=== PATIENT | female | born 1950 | race Two or more races ===

== ENCOUNTER 2018-10-25 22:38 | Inpatient (IN) | payer SELFPAY ==
[~2018-10-25] VITALS: Ht 152.4 cm; Wt 89.5 kg
[2018-10-25] MEDS ORDERED: ACETAMINOPHEN 325 MG TAB PO ONE (23:00)
[2018-10-25 23:20] LABS: Eosinophils # (auto) 0.1 uL; Monocytes # (auto) 0.2 uL
[2018-10-25 23:21] LABS: Basophils # (auto) 0 uL; Basophils % (auto) 0.3 % (0.0-2.0); Eosinophils % (auto) 0.7 % (0.0-7.0); Hematocrit 31.1 % (36.0-46.0); Lymphocytes # (auto) 0.7 uL; Lymphocytes % (auto) 5.2 % (10.0-50.0); Mean Corpuscular Hemoglobin 26.7 pg (28.0-32.0); Mean Corpuscular Hgb Conc. 32.1 g/dL (32.0-36.0); Mean Corpuscular Volume 83.3 fL (80.0-100.0); Monocytes % (auto) 1.4 % (0.0-12.0); Neutrophils # (auto) 11.7 uL; Neutrophils % (auto) 92.4 % (37.0-80.0); Nucleated Red Blood Cells % 0.1 %; Platelet Count (auto) 536 10^3/uL (140-450); Red Blood Cells 3.73 10^6/uL (4.0-5.20); Red Cell Distribution Width 15.3 % (11.8-14.3); White Blood Cell 12.7 10^3/uL (4.4-10.8)
[2018-10-25 23:39] LABS: Albumin 2.5 g/dL (3.4-5.0); Calcium 8.5 mg/dL (8.5-10.1)
[2018-10-25 23:47] LABS: BUN/Creatinine Ratio 12.6; Bilirubin, Total 0.5 mg/dL (0.2-1.0); Total Protein 7.8 g/dL (6.4-8.2)
[2018-10-26] MEDS ORDERED: VANCOMYCIN PER PHARMACY 1,000 MG IV SCH (01:15)
[2018-10-26] MEDS ORDERED: ACETAMINOPHEN 325 MG TAB PO PRN (01:15)
[2018-10-26] MEDS ORDERED: SODIUM CHLORIDE 0.9% 2,250 ML IV ONE (01:15)
[2018-10-26] MEDS ORDERED: InsuLIN REG 1unit/0.01ml Soln (100units/ml) IV ONE ×2 (01:15→04:45)
[2018-10-26] MEDS ORDERED: VANCOMYCIN 1GM/250ML 250 ML IV ONE (01:45)
[2018-10-26 02:09] LABS: INR 0.99 (0.9-1.15)
[2018-10-26 04:28] LABS: Urine Bacteria FEW /hpf (None Seen); Urine Blood TRACE /uL (Negative); Urine Specific Gravity 1.019 (1.001-1.035); Urine WBC 72 /hpf (0 - 5)
[2018-10-26 05:32] LABS: Fibrinogen 588.9 mg/dL (177-375)
[2018-10-26] MEDS: PIPERACILLIN-TAZOB 3.375GM 100 ML IV SCH ×2 (06:14→12:02)
[2018-10-26] MEDS ORDERED: DEXTROSE (50%) 50ML SYRG IV PRN (06:45)
[2018-10-26] MEDS ORDERED: HYDROcodone-ACET 5/325MG TAB PO PRN (06:45)
[2018-10-26] MEDS ORDERED: ONDANSETRON HCL 4 MG/2 ML VIAL IV PRN (06:45)
[2018-10-26] MEDS: SODIUM CHLORIDE 0.9% 1,000 ML IV SCH ×2 (07:04→23:25)
[2018-10-26 08:06] LABS: BUN/Creatinine Ratio 13.1; Calcium 7.7 mg/dL (8.5-10.1); Potassium 3.8 mmol/L (3.5-5.1)
[2018-10-26 08:09] LABS: Eosinophils # (auto) 0.1 uL; Lymphocytes # (auto) 1.7 uL; Monocytes # (auto) 0.6 uL; Neutrophils # (auto) 11.2 uL
[2018-10-26 08:12] LABS: Basophils # (auto) 0 uL; Basophils % (auto) 0.2 % (0.0-2.0); Eosinophils % (auto) 0.6 % (0.0-7.0); Hematocrit 28.2 % (36.0-46.0); Lymphocytes % (auto) 12.3 % (10.0-50.0); Mean Corpuscular Hemoglobin 26.1 pg (28.0-32.0); Mean Corpuscular Hgb Conc. 31.7 g/dL (32.0-36.0); Mean Corpuscular Volume 82.5 fL (80.0-100.0); Monocytes % (auto) 4.1 % (0.0-12.0); Neutrophils % (auto) 82.8 % (37.0-80.0); Red Blood Cells 3.42 10^6/uL (4.0-5.20); Red Cell Distribution Width 15.7 % (11.8-14.3); White Blood Cell 13.5 10^3/uL (4.4-10.8)
[2018-10-26] MEDS: ACCU-CHEK COMFORT CURVE STRIP VI SCH ×4 (08:30→20:00)
[2018-10-26] MEDS: InsuLIN REG 1unit/0.01ml Soln (100units/ml) SC SCH ×4 (08:39→21:00)
[2018-10-26] MEDS ORDERED: VANCOMYCIN 750 MG in D5W 5% 250 ML IV SCH ×2 (10:15→20:00)
[2018-10-26 10:47] LABS: Platelet Count (auto) 483 10^3/uL (140-450)
--- NOTE | 2018-10-26 11:30 | NUR ---
OPENING PATIENT UP TO THE FLOOR, DAUGHTER AT BEDSIDE, WILL F/U WITH ASSESSMENT
[2018-10-26 12:00] VITALS: BP 96/65
--- NOTE | 2018-10-26 12:47 | NUR ---
NURSE NOTE CHASE AT BEDSIDE, DISCUSSING PLAN FOR PATIENT REGARDING INSURANCE
--- NOTE | 2018-10-26 13:12 | NUR ---
MD DR PHELPS OB ROUNDING STATES PATIENT CAN F/U PER THE PROLAPSE UTERUS OUTPATIENT TO [facility] DUE TO NO INSURANCE TO HAVE SURGERY TO FIX PROLAPSE UTERUS DIFLUCAN 150 MG PO QD FOR 3 DAYS TO TREAT YEAST INFECTION SHE MAY START THE DOSE NOW.
[2018-10-26] MEDS ORDERED: FLUCONAZOLE 100 MG TAB PO ONE (13:15)
--- NOTE | 2018-10-26 14:33 | NUR ---
paging md larsen paging doctor larsen per the new blood culture results positive blood cultures for gram negative rods
--- NOTE | 2018-10-26 14:37 | NUR ---
chava requests to discontinue vancomycin and to start rocephin iv 1 gram daily
[2018-10-26 16:00] VITALS: BP 92/51
[2018-10-26] MEDS: cefTRIAXone 1GM/50ML D5W 50 ML IV SCH (16:22)
[2018-10-26] MEDS ORDERED: METF-370 PO (16:35)
[2018-10-26] MEDS: ACETAMINOPHEN 500 MG TAB PO PRN (17:08)
--- NOTE | 2018-10-26 19:40 | NUR ---
Opening Shift Note Assumed care of patient, awake and alert. No S/S of distress/SOB or pain. Bed in lowest locked position, side rail up x2, call light within reach. Dallas Moore at bedside. Instructed on POC through loop puller RN and to call for assist PRN, will continue to monitor for changes Q1hr and PRN.
--- NOTE | 2018-10-26 20:40 | NUR ---
Urology Consult Dr. Shi Amezquita at bedside for urology consult. New order received for 18 mongolian Cummins catheter insertion. Order read back and verified, will implement and continue to monitor patient.
--- NOTE | 2018-10-26 21:00 | NUR ---
Cummins catheter insertion Patient assessed and determined to be in need of Cummins catheter. Order obtained from Dr. Shi Amezquita. Patient educated on catheter and reason for insertion through gymnasium teacher RN. All questions answered. Cummins catheter 18 gauge Turkish inserted with clean sterile technique. Patient tolerated well. Yellow urine with sediment noted on insertion. Will continue to monitor patient.
[2018-10-26 21:48] VITALS: BP 134/54
[2018-10-27] MEDS: ACCU-CHEK COMFORT CURVE STRIP VI SCH ×6 (04:53→22:43)
[2018-10-27] MEDS: InsuLIN REG 1unit/0.01ml Soln (100units/ml) SC SCH ×6 (04:53→22:43)
[2018-10-27 05:00] VITALS: BP 132/64
--- NOTE | 2018-10-27 07:00 | NUR ---
Closing Note Patient lying in bed, eyes closed, respirations even and unlabored, appears asleep. No s/s of distress. Care endorsed to dayshift RN.
--- NOTE | 2018-10-27 07:10 | NUR ---
Opening Shift Note Assumed care of patient, awake and alert, sitting up and eating breakfast. No S/S of distress/SOB or pain. Cummins catheter intact, patent and draining cloudy, yellow urine. No bladder distension noted. Call light on hand, instructed on POC and to call for assist PRN, will continue to monitor for changes Q1hr and PRN.
[2018-10-27] MEDS: cefTRIAXone 1GM/50ML D5W 50 ML IV SCH (07:48)
[2018-10-27] MEDS: FLUCONAZOLE 100 MG TAB PO SCH (07:49)
[2018-10-27 09:00] VITALS: BP 124/68
--- NOTE | 2018-10-27 12:35 | NUR ---
Nutrition Consult/Assessment Notes please see attached link for complete assessment Est. Needs ABW [id number] kcal (20-23 kcal/kgABW), 66-72 gms pro (1.0-1.1 gms/kgABW). Will continue to monitor pertinent labs and reassess nutrient need prn Addendum: 10/27/18 at [address] Amended: Links added.
[2018-10-27 13:00] VITALS: BP 128/58
[2018-10-27] MEDS: SODIUM CHLORIDE 0.9% 1,000 ML IV SCH (16:05)
[2018-10-27 16:47] VITALS: BP 126/72
--- NOTE | 2018-10-27 19:40 | NUR ---
Opening Shift Note Assumed care of patient, awake and alert. No S/S of distress/SOB or pain. Bed in lowest locked position, side rail up x2, call light within reach. Dallas Moore at bedside. Instructed on POC through pediatric associate RN and to call for assist PRN, will continue to monitor for changes Q1hr and PRN.
[2018-10-27 22:00] VITALS: BP 131/74
[2018-10-28] MEDS: ACCU-CHEK COMFORT CURVE STRIP VI SCH ×6 (00:42→20:29)
[2018-10-28] MEDS: InsuLIN REG 1unit/0.01ml Soln (100units/ml) SC SCH ×6 (00:43→20:30)
[2018-10-28 05:29] VITALS: BP 123/55
[2018-10-28 05:52] LABS: Basophils # (auto) 0 uL; Basophils % (auto) 0.5 % (0.0-2.0); Eosinophils # (auto) 0.3 uL; Eosinophils % (auto) 3.1 % (0.0-7.0); Hematocrit 29.4 % (36.0-46.0); Hemoglobin 9.4 g/dL (12.2-16.2); Lymphocytes # (auto) 2.7 uL; Lymphocytes % (auto) 32.6 % (10.0-50.0); Mean Corpuscular Hemoglobin 26.4 pg (28.0-32.0); Mean Corpuscular Hgb Conc. 32.1 g/dL (32.0-36.0); Mean Corpuscular Volume 82.1 fL (80.0-100.0); Monocytes # (auto) 0.7 uL; Monocytes % (auto) 8.9 % (0.0-12.0); Neutrophils # (auto) 4.5 uL; Neutrophils % (auto) 54.9 % (37.0-80.0); Platelet Count (auto) 568 10^3/uL (140-450); Red Blood Cells 3.58 10^6/uL (4.0-5.20); Red Cell Distribution Width 16.2 % (11.8-14.3); White Blood Cell 8.3 10^3/uL (4.4-10.8)
[2018-10-28 06:01] LABS: Potassium 3.4 mmol/L (3.5-5.1)
[2018-10-28 06:09] LABS: BUN/Creatinine Ratio 10.3; Bilirubin, Total 0.2 mg/dL (0.2-1.0); Calcium 7.9 mg/dL (8.5-10.1); Total Protein 6.6 g/dL (6.4-8.2)
--- NOTE | 2018-10-28 07:00 | NUR ---
Closing Note Patient lying in bed, awake and alert. No s/s of distress. Care endorsed to carmencita RICHARD. Addendum: 10/28/18 at 0702 by RAQUEL JOHN RN RN CORRECTION: Note should read, "Patient lying in bed, eyes closed, respirations even and unlabored, appears asleep. No s/s of distress. Care endorsed to carmencita RICHARD."
--- NOTE | 2018-10-28 07:15 | NUR ---
Opening Note Received report from maintenance supervisor 2nd shift RN. Patient is awake, alert and oriented x4. No signs or symptoms of distress noted at this time. Patient has a Cummins catheter in place, patent and draining. Patient is on room air, respirations even and unlabored. Patient denies pain at this time. Reviewed plan of care with patient, patient verbalized understanding. Bed in low and locked position, call light within reach. Will continue to monitor Q1 hour and PRN.
--- NOTE | 2018-10-28 08:30 | NUR ---
Family at bedside
[2018-10-28] MEDS: cefTRIAXone 1GM/50ML D5W 50 ML IV SCH (08:52)
[2018-10-28 09:00] VITALS: BP 141/66
[2018-10-28] MEDS: FLUCONAZOLE 100 MG TAB PO SCH (10:24)
[2018-10-28] MEDS: SODIUM CHLORIDE 0.9% 1,000 ML IV SCH (11:07)
[2018-10-28 13:00] VITALS: BP 155/72
[2018-10-28] MEDS ORDERED: POTASSIUM CHL 20 Meq TABLET PO ONE (15:45)
[2018-10-28] MEDS ORDERED: LEVOFLOXACIN 750MG 150 ML IV ONE (15:45)
[2018-10-28 17:03] VITALS: BP 138/70
--- NOTE | 2018-10-28 19:10 | NUR ---
IV removed IV removed from the right AC, catheter intact, pressure dressing applied.
--- NOTE | 2018-10-28 19:15 | NUR ---
Closing Note Report given to shift production associate RN. Patient is awake, alert and oriented x4. No signs or symptoms of distress noted at this time. Family at bedside
--- NOTE | 2018-10-28 19:30 | NUR ---
Opening Shift Note and IV insertion Assumed care of patient, awake and alert. No S/S of distress/SOB or pain. Bed in lowest locked position, side rail up x2, call light within reach. Family at bedside. Instructed on POC through produce team member RN and to call for assist PRN, will continue to monitor for changes Q1hr and PRN. IV access obtained, via clean sterile technique by inserting 22 gauge catheter at left forearm after one attempt by Gabby RN. IV secured properly. No trauma to site. Patient tolerated well.
[2018-10-28] MEDS: ACETAMINOPHEN 500 MG TAB PO PRN (20:35)
[2018-10-28 22:00] VITALS: BP 160/93
[2018-10-29] MEDS: ACCU-CHEK COMFORT CURVE STRIP VI SCH ×4 (00:03→12:00)
[2018-10-29] MEDS: SODIUM CHLORIDE 0.9% 1,000 ML IV SCH (00:04)
[2018-10-29] MEDS: InsuLIN REG 1unit/0.01ml Soln (100units/ml) SC SCH ×4 (04:36→13:57)
[2018-10-29 05:00] VITALS: BP 153/69
--- NOTE | 2018-10-29 06:36 | NUR ---
Closing Note Patient lying in bed, eyes closed, respirations even and unlabored, appears asleep. No s/s of distress. Will endorse care to dayshift RN.
[2018-10-29 07:00] LABS: Basophils # (auto) 0 uL; Eosinophils # (auto) 0.2 uL; Hemoglobin 9.2 g/dL (12.2-16.2); Mean Corpuscular Hemoglobin 26.7 pg (28.0-32.0); Mean Corpuscular Hgb Conc. 32.5 g/dL (32.0-36.0); Monocytes # (auto) 0.4 uL; Monocytes % (auto) 6.7 % (0.0-12.0)
[2018-10-29 07:03] LABS: Basophils % (auto) 0.6 % (0.0-2.0); Eosinophils % (auto) 3.3 % (0.0-7.0); Hematocrit 28.4 % (36.0-46.0); Lymphocytes % (auto) 32.7 % (10.0-50.0); Mean Corpuscular Volume 82.1 fL (80.0-100.0); Neutrophils # (auto) 3.5 uL; Neutrophils % (auto) 56.7 % (37.0-80.0); Nucleated Red Blood Cells % 0.1 %; Red Blood Cells 3.47 10^6/uL (4.0-5.20); Red Cell Distribution Width 16.2 % (11.8-14.3); White Blood Cell 6.2 10^3/uL (4.4-10.8)
[2018-10-29 07:08] LABS: BUN/Creatinine Ratio 12.2; Calcium 8.2 mg/dL (8.5-10.1); Potassium 3.9 mmol/L (3.5-5.1)
--- NOTE | 2018-10-29 07:45 | NUR ---
OPENING SHIFT NOTE PATIENT IS IN BED WATCHING TV AT THIS TIME. DENIES PAIN SOB OR ANY DISTRESS. BED IS IN LOWEST LOCKED POSITION CALL LIGHT IS WITHIN REACH WILL CONTINUE TO MONITOR
[2018-10-29 08:29] VITALS: BP 149/80
[2018-10-29] MEDS ORDERED: LEVOFLOXACIN 750MG 150 ML IV SCH (10:00)
[2018-10-29] MEDS: FLUCONAZOLE 100 MG TAB PO SCH (10:13)
--- NOTE | 2018-10-29 10:16 | NUR ---
Received referral to see pt for home group home care. Pt is currently apply for [facility]. Gave Son Private pay resources. Addendum: 10/29/18 at 1230 by MAHNAZ MULLEN SS Received referral for home health care/ home health aide. Gave pt' son resources for private pay caregivers, due to not having a payer source for home health.
[2018-10-29 12:30] VITALS: BP 149/80
--- NOTE | 2018-10-29 15:15 | NUR ---
AT BEDSIDE DR OBRIEN AT BEDSIDE. GAVE DISCHARGE ORDERS. WILL CARRY OUT ORDERS
[2018-10-29 15:43] VITALS: BP 149/80
[2018-10-29 16:12] LABS: Platelet Count (auto) 538 10^3/uL (140-450)
--- NOTE | 2018-10-29 16:30 | NUR ---
DISCHARGE NOTE PATIENT ALERT AND ORIENTED X4 SHOWING NO S/S OF DISTRESS OR SOB. DISCHARGE INSTRUCTIONS WERE GIVEN AND ALL QUESTIONS AND CONCERNS ADDRESSED. IV REMOVED CATHETER INTACT PRESSURE DRESSING APPLIED PATIENT TOLERATED WELL. TELE BOX REMOVED CLEANED AND RETURNED TO RADHA. PATIENT ESCORTED OUT USING WHEELCHAIR TO PERSONAL VEHICLE ACCOMPANIED BY SON.
== END 2018-10-29 16:30 | disposition home or self-care (01) | DRG 871 ==
LOC: ER 22:40 → TELE 22:41 → TELE-WESTW 10-26 11:43
PROVIDERS: ADMIT Nurse Practitioner Family; ATTEND Internal Medicine
DX: A41.59 Other Gram-negative sepsis (principal); N17.0 Acute kidney failure with tubular necrosis; N13.6 Pyonephrosis; E87.1 Hypo-osmolality and hyponatremia; E44.0 Moderate protein-calorie malnutrition; A54.9 Gonococcal infection, unspecified; E78.5 Hyperlipidemia, unspecified; E11.65 Type 2 diabetes mellitus with hyperglycemia; D64.9 Anemia, unspecified; E66.9 Obesity, unspecified; D63.8 Anemia in other chronic diseases classified elsewhere; E11.21 Type 2 diabetes mellitus with diabetic nephropathy; N81.3 Complete uterovaginal prolapse; E87.6 Hypokalemia; E11.22 Type 2 diabetes mellitus with diabetic chronic kidney disease; N18.9 Chronic kidney disease, unspecified; N76.0 Acute vaginitis; Z83.3 Family history of diabetes mellitus; Z68.38 Body mass index [BMI] 38.0-38.9, adult; B96.1 Klebsiella pneumoniae [K. pneumoniae] as the cause of diseases classified elsewhere
CPT/HCPCS: 36415; 36600; 71045; 74176; 76775; 78582; 80048; 80053; 80061; 81001; 82010; 82550; 82805; 82962; 83036; 83605; 83615; 83735; 83880; 84484; 85025; 85379; 85384; 85610; 85730; 86850; 86900; 86901; 87040; 87077; 87086; 87186; 93306; 93970; 94761; 96365; 96375; 96376; 99291; G0378; J0696; J1815; J1956; J2543; J7060

== ENCOUNTER 2024-04-22 13:12 | Inpatient (IN) | payer MEDICAID, MEDICARE ==
[~2024-04-22] VITALS: Ht 170.2 cm; Wt 98.2 kg
[~2024-04-22 13:12] MED LIST: METF-370 PO
--- NOTE | 2024-04-22 14:13 | ED.PDOC ---
HPI (NEURO) HPI Comments 73 year old female LACI presents to the ED with chief complaint of left sided weakness. Patient reports she has been experiencing left sided weakness since yesterday, being unable to move her whole left side on her own. Patient relays that she also has pain to her left legs at this time. Patient denies any numbness, headache, dizziness, blurred vision, chest pain, or SOB. Chief Complaint: Left Sided Weakness Time Seen by MD: 14:10 Primary Care Provider: UNKNOWN Reviewed Notes: Nurses Notes, Medications, Allergies Information Source: Patient Mode of Arrival: EMS Severity: Moderate Dizziness/Weakness Severity: Unable to do activities Timing: Days Duration: Since onset Prehospital treatment: None Weakness Location: (L) Sided Onset: At rest Circumstances: Spontaneous Symptoms: Weakness History of: DM Modifying factors: Nothing Associated Signs and Symptoms: Weakness Past Medical History PAST MEDICAL HISTORY: CVA, DM Past Medical History (Other): Left knee arthritis Surgical History: Denies all surgeries MARKETING PROPOSAL COORDINATOR History: No Pertinent MARKETING PROPOSAL COORDINATOR History Family History Family History: Unknown Social History Smoker: Non-Smoker Alcohol: Denies ETOH Use Drugs: Denies Drug Use Lives In: Home Constitutional: denies: chills, diaphoresis, fatigue, fever, malaise, sweats, weakness, others EENTM: denies: blurred vision, double vision, ear bleeding, ear discharge, ear drainage, ear pain, ear ringing, eye pain, eye redness, hearing loss, mouth pain, mouth swelling, nasal discharge, nose bleeding, nose congestion, nose pain, photophobia, tearing, throat pain, throat swelling, voice changes, others Respiratory: denies: cough, hemoptysis, orthopnea, SOB at rest, shortness of breath, SOB with excertion, stridor, wheezing, others Cardiovascular: denies: chest pain, dizzy spells, diaphoresis, Dyspnea on e xertion, edema, irregular heart beat, left arm pain, lightheadedness, palpitations, PND, syncope, others Gastrointestinal: denies: abdomen distended, abdominal pain, blood streaked bowels, constipated, diarrhea, dysphagia, difficulty swallowing, hematemesis, melena, nausea, poor appetite, poor fluid intake, rectal bleeding, rectal pain, vomiting, others Genitourinary: denies: abnormal vagina bleeding, burning, dyspareunia, dysuria, flank pain, frequency, hematuria, incontinence, pain, , vagina discharge, urgency, others Neurological: reports: left sided weakness; denies: dizziness, fainting, headache, left sided numbness, numbness, paresthesia, pre-existing deficit, right sided numbness, right sided weakness, seizure, speech problems, tingling, tremors, weakness, others Musculoskeletal: reports: others (Left leg pain); denies: back pain, gout, joint pain, joint swelling, muscle pain, muscle stiffness, neck pain Integumetry: denies: bruises, change in color, change in hair/nails, dryness, laceration, lesions, lumps, rash, wounds, others Allergic/Immunocompromised: denies: Difficulty Healing, Frequent Infections, Hives, Itching, others Hematologic/Lymphatic: denies: anemia, blood clots, easy bleeding, easy bruising, swollen glands, others Endocrine: denies: excessive hunger, excessive sweating, excessive thirst, excessive urination, flushing, intolerance to cold, intolerance to heat, unexplained weight gain, unexplained weight loss, others Psychiatric: denies: anxiety, bipolar disorder, depression, hopeless, panic disorder, schizophrenia, sleepless, suicidal, others All Other Systems: Reviewed and Negative Physical Exam General Appearance: No Apparent Distress, Obese HEENT: Normal ENT Inspection Neck: Full Range of Motion, Normal Inspection Respiratory: Lungs Clear, No Accessory Muscle Use, No Respiratory Distress, Normal Breath Sounds Cardiovascular: No JVD, Regular Rate/Rhythm Breast Exam: Deferred Gastrointestinal: Non Tender, Soft Genitalia: Deferred Pelvic: Deferred Rectal: Deferred Extremities: Leg edema, Normal range of motion (Passive), Pedal edema, Tender (Left knee diffuse soft tissue tenderness) Neurologic: Alert (Oriented x4), fisher trot line II-XII nml as Tested, Motor Weakness (2- 3/5 strength left upper and lower extremities, 5/5 strength right upper and lower extremities), Normal Affect, Normal Mood, Other (Light touch sensation grossly intact) Cerebellar Function: NOT DONE Reflexes: NOT DONE Skin: Dry, Normal Color, Warm Lymphatic: NOT DONE Was a procedure done? Was a procedure done?: No Differential Diagnosis (SZ) Seizure: CVA/TIA, Hypocalcemia, Hypoglycemia, Hyponatremia, Mass Lesion, Encephalopathy General Weakness: Dysrhythmia, Electrolyte imbalance Headache: Migraine, Epidural Hemorrhage, Intracerebral Hemorrhage, Subarachnoid Hemorrhage, Subdural Hemorrhage X-Ray, Labs, Meds, VS Vital Signs Date Time Temp Pulse Resp B/P (MAP) Pulse Ox O2 Delivery O2 Flow Rate FiO2 04/22/24 13:12 98.2 63 18 104/65 (78) 98 Lab Test 04/22/24 15:14 04/22/24 14:16 Range/Units Troponin I High Sensitivity 24 25 </=34 ng/L White Blood Count 4.9 4.4-10.8 10^3/uL Red Blood Count 4.02 4.0-5.20 10^6/uL Hemoglobin 12.5 12.2-16.2 g/dL Hematocrit 37.2 36.0-46.0 % Mean Corpuscular Volume 92.5 80.0-100.0 fL Mean Corpuscular Hemoglobin 31.1 28.0-32.0 pg Mean Corpuscular Hemoglobin Concent 33.7 32.0-36.0 g/dL Red Cell Distribution Width 14.7 H 11.8-14.3 % Platelet Count 308 140-450 10^3/uL Mean Platelet Volume 8.2 6.9-10.8 fL Neutrophils (%) (Auto) 62.4 37.0-80.0 % Lymphocytes (%) (Auto) 27.0 10.0-50.0 % Monocytes (%) (Auto) 7.4 0.0-12.0 % Eosinophils (%) (Auto) 2.3 0.0-7.0 % Basophils (%) (Auto) 0.9 0.0-2.0 % Neutrophils # (Auto) 3.1 1.6-8.6 10 ^3/uL Lymphocytes # (Auto) 1.3 0.4-5.4 10 ^3/uL Monocytes # (Auto) 0.4 0-1.3 10 ^3/uL Eosinophils # (Auto) 0.1 0-0.8 10 ^3/uL Basophils # (Auto) 0 0-0.2 10 ^3/uL Nucleated Red Blood Cells 0.1 % Sodium Level 140 136-145 mmol/L Potassium Level 3.9 3.5-5.1 mmol/L Chloride Level 107 98-107 mmol/L Carbon Dioxide Level 24 20-31 mmol/L Anion Gap 9 5-15 Blood Urea Nitrogen 30 H 9-23 mg/dL Creatinine 1.56 H 0.550-1.02 mg/dL Glomerular Filtration Rate Calc 35 >90 mL/min BUN/Creatinine Ratio 19.2 10.0-20.0 Serum Glucose 94 74-106 mg/dL Calcium Level 9.7 8.7-10.4 mg/dL B-Type Natriuretic Peptide 20.53 0-100 pg/mL CT Head: FINDINGS: There is encephalomalacia in the right occipital lobe related to chronic infarct. There are hypodense changes in the left occipital lobe and in the anterior left frontal lobe which may represent additional chronic infarcts. There is a small nonspecific hypodense focus in the left basal ganglia anterior to the thalamus which may represent an age indeterminate lacunar infarct. There is no evidence of acute intracranial hemorrhage. There is no mass effect or midline shift. There is no hydrocephalus or extra-axial fluid collection. There is a retention cysts in the left maxillary sinus. Mastoid air cells are clear. The calvarium is intact. IMPRESSION: 1. Small nonspecific hypodense focus in the left basal ganglia, anterior to the thalamus which may represent an age indeterminate lacunar infarct. Clinical correlation and further evaluation with MRI brain with diffusion-weighted imaging is recommended. 2. Chronic infarct in the right occipital lobe. There are also likely additional chronic infarcts in the left occipital and left anterior frontal lobes. X-Ray, Labs, Meds, VS Comment 73-year-old female with a history of prior CVA and DM presenting with new onset of left-sided weakness since yesterday Vitals unremarkable Exam remarkable for 2/5 strength in the left upper extremity and 1/5 strength in the left lower extremity. No other focal deficit appreciated Rhythm strip independently interpreted by me: Sinus rhythm, rate 63, no ectopy. Head CT: IMPRESSION: 1. Small nonspecific hypodense focus in the left basal ganglia, anterior to the thalamus which may represent an age indeterminate lacunar infarct. Clinical correlation and further evaluation with MRI brain with diffusion-weighted imaging is recommended. 2. Chronic infarct in the right occipital lobe. There are also likely additional chronic infarcts in the left occipital and left anterior frontal lobes. Chest x-ray: IMPRESSION: 1. Question mild pulmonary edema CBC unremarkable, basic metabolic panel remarkable for BUN 30, creatinine 1.56, 2 serial troponins negative, BNP normal Patient treated with the following in the ED: Aspirin 325 mg p.o. On re-evaluation, patient was demonstrating no new neurologic changes. Was resting comfortably, and vitals were stable. Case discussed with Dr. Mayen who sent the patient to the ED. She recommended the patient be admitted for MRI of the brain and neurology evaluation, thereafter will need to be placed in a retirement facility. Images Reviewed?: Images reviewed and evaluated by me Time of 1ST Reevaluation: 15:10 Reevaluation 1ST: Unchanged Patient Education/Counseling: Diagnosis, Treatment Family Education/Counseling: No Family Present Departure 1 Departure Time of Disposition: 17:34 Impression: Primary Impression: CVA (cerebral vascular accident) Qualified Codes: I63.9 - Cerebral infarction, unspecified Disposition: ADMITTED INPATIENT Admit to: Tele Condition: Guarded Critical Care Note Critical Care Time?: No Stability Stability form required: No Heart Score Heart Score: Heart Score Response (Comments) Value History N/A 0 EKG N/A 0 Age N/A 0 Risk Factors N/A 0 Troponin N/A 0 Total 0 I personally scribed for KOKO TOLEDO MD ([email or web address]) on 04/22/24 at 14:13. Electronically submitted by Joey Corona ([email or web address]). I personally scribed for KOKO TOLEDO MD ([email or web address]) on 04/22/24 at 14:27. Electronically submitted by Joey Corona ([email or web address]). KOKO TOLEDO MD Apr 22, 2024 14:13
--- NOTE | 2024-04-22 14:21 | DVH ---
EXAM: CT HEAD WITHOUT CONTRAST HISTORY: LUE/LLE weakness since yesterday COMPARISON: None TECHNIQUE: Axial images of the head were obtained and reformatted in coronal and sagittal planes. All CT scans at this medical facility are performed using dose modulation techniques as appropriate t o a performed exam including the following: Automated exposure control was utilized; adjustment of th e MA and/or KV according to patient size; and use of iterative reconstruction technique. CT Dose: CTDI volume is 61 mGy. Dose-length product is 1082 mGy*cm FINDINGS: There is encephalomalacia in the right occipital lobe related to chronic infarct. There are hypodens e changes in the left occipital lobe and in the anterior left frontal lobe which may represent additi onal chronic infarcts. There is a small nonspecific hypodense focus in the left basal ganglia anterio r to the thalamus which may represent an age indeterminate lacunar infarct. There is no evidence of a cute intracranial hemorrhage. There is no mass effect or midline shift. There is no hydrocephalus or extra-axial fluid collection. There is a retention cysts in the left maxillary sinus. Mastoid air cells are clear. The calvarium i s intact. IMPRESSION: 1. Small nonspecific hypodense focus in the left basal ganglia, anterior to the thalamus which may re present an age indeterminate lacunar infarct. Clinical correlation and further evaluation with MRI br ain with diffusion-weighted imaging is recommended. 2. Chronic infarct in the right occipital lobe. There are also likely additional chronic infarcts in the left occipital and left anterior frontal lobes. HS:Y
--- NOTE | 2024-04-22 14:29 | DVH ---
Chest x-ray Technique: AP portable HISTORY: L side weak Comparison: None FINDINGS: Heart size is enlarged. Question of mild congestive changes in the right lung. Left lung i s clear IMPRESSION: 1. Question mild pulmonary edema
[2024-04-22 14:34] LABS: Basophils # (auto) 0 10 ^3/uL (0-0.2); Basophils % (auto) 0.9 % (0.0-2.0); Eosinophils # (auto) 0.1 10 ^3/uL (0-0.8); Eosinophils % (auto) 2.3 % (0.0-7.0); Hematocrit 37.2 % (36.0-46.0); Hemoglobin 12.5 g/dL (12.2-16.2); Lymphocytes # (auto) 1.3 10 ^3/uL (0.4-5.4); Mean Corpuscular Hemoglobin 31.1 pg (28.0-32.0); Mean Corpuscular Hgb Conc. 33.7 g/dL (32.0-36.0); Mean Corpuscular Volume 92.5 fL (80.0-100.0); Monocytes # (auto) 0.4 10 ^3/uL (0-1.3); Monocytes % (auto) 7.4 % (0.0-12.0); Neutrophils # (auto) 3.1 10 ^3/uL (1.6-8.6); Neutrophils % (auto) 62.4 % (37.0-80.0); Nucleated Red Blood Cells % 0.1 %; Platelet Count (auto) 308 10^3/uL (140-450); Red Blood Cells 4.02 10^6/uL (4.0-5.20); Red Cell Distribution Width 14.7 % (11.8-14.3); White Blood Cell 4.9 10^3/uL (4.4-10.8)
[2024-04-22 14:44] LABS: Chloride 107 mmol/L (98-107); Potassium 3.9 mmol/L (3.5-5.1); Sodium 140 mmol/L (136-145)
[2024-04-22 14:45] LABS: Anion Gap 9 (5-15); Calcium 9.7 mg/dL (8.7-10.4); Carbon Dioxide 24 mmol/L (20-31)
[2024-04-22 14:50] LABS: BUN/Creatinine Ratio 19.2 (10.0-20.0); Glucose 94 mg/dL (74-106)
[2024-04-22 14:55] LABS: Blood Urea Nitrogen 30 mg/dL (9-23)
[2024-04-22] MEDS ORDERED: HYDROcodone-ACET 5/325MG TAB PO PRN (18:30)
[2024-04-22] MEDS ORDERED: NITROGLYCERIN 0.4 MG SL TAB SL PRN (18:30)
[2024-04-22] MEDS ORDERED: ACETAMINOPHEN 325 MG TAB PO PRN (18:30)
[2024-04-22] MEDS ORDERED: ONDANSETRON HCL 4 MG/2 ML VIAL IV PRN (18:30)
[2024-04-22] MEDS ORDERED: MORPHINE SULFATE INJ 2 MG/ml SYRG IV PRN (18:30)
--- NOTE | 2024-04-22 18:31 | DVHHP2 ---
Admitting Diagnosis: Left sided weakness Chronic stroke History of Present Illness Patient reports left sided weakness that started of last week. Patient has a history of CVA with left-sided weakness. However, her condition has progressively gotten worse. Patient is Russian-speaking. Past Medical History Patient has past medical history, pertinent for a previous stroke with the left sided weakness. Also has a history of hypertension and diabetes. Past Surgical History Unknown. Family History Unknown. Patient is a poor historian. Social History Russian-speaking. Non-smoker. Patient Family History: Patient reports no known family medical history. Allergies: Coded Allergies: NO KNOWN ALLERGIES (Unverified , 10/25/18) Home Meds Active Scripts Atorvastatin Calcium (ATORVASTATIN CALCIUM) 20 Mg Tab, 40 MG PO DAILY for 30 Days, #60 TAB Prov:SAHARA NERI [employer] 04/23/24 Aspirin (Aspirin Low Dose) 81 Mg Tab, 81 MG PO DAILY for 30 Days, #30 TAB Prov:SAHARA NERI [employer] 04/23/24 Reported Medications Metformin Hydrochloride (Metformin Hcl) 500 Mg Tab, 1000 MG PO BID for 30 Days, MG 10/26/18 Current Medications Current Medications Medications (Trade) Dose Ordered Sig/Annabel Route PRN Reason Start Time Stop Time Status Last Admin Acetaminophen/ Hydrocodone Bitart ([place] 5/325MG Tab) 1 tab Q4HP PRN PO MODERATE PAIN (4-6 PAIN SCALE) 04/22/24 18:30 Ondansetron HCl (Zofran) 4 mg Q4HP PRN IV NAUSEA / VOMITING 04/22/24 18:30 Acetaminophen (Tylenol Tablet) 650 mg Q6HP PRN PO PAIN SCALE 1-3 OR TEMP>100.4 04/22/24 18:30 Enoxaparin Sodium (Lovenox) 40 mg DAILY SC 04/23/24 10:00 04/23/24 11:14 Nitroglycerin (Ntrostat Sublingual) 0.4 mg Q5MINP PRN SL FOR CHEST PAIN 04/22/24 18:30 Morphine Sulfate 2 mg Q30M PRN IV FOR CHEST PAIN 04/22/24 18:30 Aspirin 81 mg DAILY PO 04/23/24 10:00 04/23/24 11:14 Atorvastatin Calcium (Lipitor) 40 mg DAILY PO 04/23/24 10:00 04/23/24 11:15 Lorazepam (Ativan Inj) 1 mg ONCE PRN IV MRI 04/23/24 10:15 Enoxaparin Sodium (Lovenox) 40 mg DAILY SC 04/24/24 10:00 Review of Systems Constitutional: denies: chills, diaphoresis, fatigue, fever, malaise, sweats, weakness, others EENTM: denies: blurred vision, double vision, ear bleeding, ear discharge, ear drainage, ear pain, ear ringing, eye pain, eye redness, hearing loss, mouth pain, mouth swelling, nasal discharge, nose bleeding, nose congestion, nose pain, photophobia, tearing, throat pain, throat swelling, voice changes, others Respiratory: denies: cough, hemoptysis, orthopnea, SOB at rest, shortness of breath, SOB with excertion, stridor, wheezing, others Cardiovascular: denies: chest pain, dizzy spells, diaphoresis, Dyspnea on exertion, edema, irregular heart beat, left arm pain, lightheadedness, palpitations, PND, syncope, others Gastrointestinal: denies: abdomen distended, abdominal pain, blood streaked bowels, constipated, diarrhea, dysphagia, difficulty swallowing, hematemesis, melena, nausea, poor appetite, poor fluid intake, rectal bleeding, rectal pain, vomiting, others Genitourinary: denies: abnormal vagina bleeding, burning, dyspareunia, dysuria, flank pain, frequency, hematuria, incontinence, pain, , vagina discharge, urgency, others Neurological: reports: left sided weakness; denies: dizziness, fainting, headache, left sided numbness, numbness, paresthesia, pre-existing deficit, right sided numbness, right sided weakness, seizure, speech problems, tingling, tremors, weakness, others Musculoskeletal: reports: others (Left leg pain); denies: back pain, gout, joint pain, joint swelling, muscle pain, muscle stiffness, neck pain Integumetry: denies: bruises, change in color, change in hair/nails, dryness, laceration, lesions, lumps, rash, wounds, others Allergic/Immunocompromised: denies: Difficulty Healing, Frequent Infections, Hives, Itching, others Hematologic/Lymphatic: denies: anemia, blood clots, easy bleeding, easy bruising, swollen glands, others Endocrine: denies: excessive hunger, excessive sweating, excessive thirst, excessive urination, flushing, intolerance to cold, intolerance to heat, unexplained weight gain, unexplained weight loss, others Psychiatric: denies: anxiety, bipolar disorder, depression, hopeless, panic disorder, schizophrenia, sleepless, suicidal, others All Other Systems: Reviewed and Negative Vital Signs Vital Signs Date Time Temp Pulse Resp B/P (MAP) Pulse Ox O2 Delivery O2 Flow Rate FiO2 04/23/24 15:16 98.4 77 16 111/85 (94) 98 98.4 04/23/24 05:43 Room Air* 0 21 Physical Exam General Appearance: No Apparent Distress, Obese HEENT: Normal ENT Inspection Neck: Full Range of Motion, Normal Inspection Respiratory: Lungs Clear, No Accessory Muscle Use, No Respiratory Distress, Normal Breath Sounds Cardiovascular: No JVD, Regular Rate/Rhythm Breast Exam: Deferred Gastrointestinal: Non Tender, Soft Genitalia: Deferred Pelvic: Deferred Rectal: Deferred Extremities: Leg edema, Normal range of motion (Passive), Pedal edema, Tender (Left knee diffuse soft tissue tenderness) Neurologic: Alert (Oriented x4), supervisor [employer] II-XII nml as Tested, Motor Weakness (2- 3/5 strength left upper and lower extremities, 5/5 strength right upper and lowe r extremities), Normal Affect, Normal Mood, Other (Light touch sensation grossly intact) Cerebellar Function: NOT DONE Reflexes: NOT DONE Skin: Dry, Normal Color, Warm Lymphatic: NOT DONE Results Labs Test 04/23/24 07:00 04/23/24 04:59 04/22/24 15:14 04/22/24 14:16 Range/Units Thyroid Stimulating Hormone (TSH) 2.02 0.55-4.78 uIU/mL White Blood Count 6.8 # 4.4-10.8 10^3/uL Red Blood Count 4.00 4.0-5.20 10^6/uL Hemoglobin 12.4 12.2-16.2 g/dL Hematocrit 36.7 36.0-46.0 % Mean Corpuscular Volume 91.8 80.0-100.0 fL Mean Corpuscular Hemoglobin 31.1 28.0-32.0 pg Mean Corpuscular Hemoglobin Concent 33.9 32.0-36.0 g/dL Red Cell Distribution Width 14.9 H 11.8-14.3 % Platelet Count 306 140-450 10^3/uL Mean Platelet Volume 8.2 6.9-10.8 fL Neutrophils (%) (Auto) 66.2 37.0-80.0 % Lymphocytes (%) (Auto) 21.9 10.0-50.0 % Monocytes (%) (Auto) 9.4 0.0-12.0 % Eosinophils (%) (Auto) 1.9 0.0-7.0 % Basophils (%) (Auto) 0.6 0.0-2.0 % Neutrophils # (Auto) 4.5 1.6-8.6 10 ^3/uL Lymphocytes # (Auto) 1.5 0.4-5.4 10 ^3/uL Monocytes # (Auto) 0.6 0-1.3 10 ^3/uL Eosinophils # (Auto) 0.1 0-0.8 10 ^3/uL Basophils # (Auto) 0 0-0.2 10 ^3/uL Nucleated Red Blood Cells 0.1 % Sodium Level 138 136-145 mmol/L Potassium Level 3.6 3.5-5.1 mmol/L Chloride Level 106 98-107 mmol/L Carbon Dioxide Level 23 20-31 mmol/L Anion Gap 9 5-15 Blood Urea Nitrogen 27 H 9-23 mg/dL Creatinine 1.21 H 0.550-1.02 mg/dL Glomerular Filtration Rate Calc 48 >90 mL/min BUN/Creatinine Ratio 22.3 H 10.0-20.0 Serum Glucose 138 H 74-106 mg/dL Hemoglobin A1c 6.5 H <5.7 % A1C Calcium Level 9.8 8.7-10.4 mg/dL Total Bilirubin 0.8 0.2-1.0 mg/dL Aspartate Amino Transferase (AST) < 8 L 13-40 U/L Alanine Aminotransferase (ALT) < 9 7-40 U/L Alkaline Phosphatase 76 46-116 U/L Total Protein 7.0 5.7-8.2 g/dL Albumin 4.0 3.2-4.8 g/dL Triglycerides Level 92 < 150 mg/dL Cholesterol Level 146 < 200 mg/dL LDL Cholesterol 67 < 100 mg/dL HDL Cholesterol 54 40-59 mg/dL Troponin I High Sensitivity 24 </=34 ng/L B-Type Natriuretic Peptide 20.53 0-100 pg/mL Primary Diagnosis Left sided weakness Diabetes Plan Patient will need neurology consult and an MRI of the brain as well as MRA of the head and neck for CVA work up. Patients symptoms started of last week. She has a history of a prior CVA with left-sided weakness however, her weakness is now more pronounced. Patient has 2/5 strength to her left upper extremity 1/5 strength to her left lower extremity. Patient will need physical therapy evaluation. Discharge planning to a senior living facility for rehab. Cardiology consult and echocardiogram. Lipid panel Start atorvastatin and aspirin Continue metformin Plan discussed with: Patient Code Visit Code Visit Total Time (mins): 45 SAHARA NERI NP Apr 22, 2024 18:31
[2024-04-23] MEDS: ASPirin 81 mg TAB PO ONE (05:39)
[2024-04-23 05:43] VITALS: PULSE 76; RESP 18; O2SAT 97
[2024-04-23 05:49] LABS: Basophils # (auto) 0 10 ^3/uL (0-0.2); Basophils % (auto) 0.6 % (0.0-2.0); Eosinophils # (auto) 0.1 10 ^3/uL (0-0.8); Eosinophils % (auto) 1.9 % (0.0-7.0); Hematocrit 36.7 % (36.0-46.0); Hemoglobin 12.4 g/dL (12.2-16.2); Lymphocytes # (auto) 1.5 10 ^3/uL (0.4-5.4); Lymphocytes % (auto) 21.9 % (10.0-50.0); Mean Corpuscular Hemoglobin 31.1 pg (28.0-32.0); Mean Corpuscular Hgb Conc. 33.9 g/dL (32.0-36.0); Mean Corpuscular Volume 91.8 fL (80.0-100.0); Monocytes # (auto) 0.6 10 ^3/uL (0-1.3); Monocytes % (auto) 9.4 % (0.0-12.0); Neutrophils # (auto) 4.5 10 ^3/uL (1.6-8.6); Neutrophils % (auto) 66.2 % (37.0-80.0); Nucleated Red Blood Cells % 0.1 %; Platelet Count (auto) 306 10^3/uL (140-450); Red Cell Distribution Width 14.9 % (11.8-14.3); White Blood Cell 6.8 10^3/uL (4.4-10.8)
[2024-04-23 06:12] LABS: Alkaline Phosphatase 76 U/L (46-116); Anion Gap 9 (5-15); BUN/Creatinine Ratio 22.3 (10.0-20.0); Bilirubin, Total 0.8 mg/dL (0.2-1.0); Calcium 9.8 mg/dL (8.7-10.4); Carbon Dioxide 23 mmol/L (20-31); Chloride 106 mmol/L (98-107); Potassium 3.6 mmol/L (3.5-5.1); Sodium 138 mmol/L (136-145)
[2024-04-23 06:16] LABS: Alanine Aminotransferase < 9 U/L (7-40); Aspartate Aminotransferase < 8 U/L (13-40); Blood Urea Nitrogen 27 mg/dL (9-23); Glucose 138 mg/dL (74-106)
--- NOTE | 2024-04-23 07:09 | DVHINCON2 ---
Date of service: Apr 23, 2024 History of Present Illness HPI Patient is 73 year old female who presented for left sided weakness. She is poor historian. She does have history of prior CVA. Cardiology was involved for cardiac aspects of care. No report of chest pain/LOC/palpitation. Does have baseline poor functional capacity. Home Meds Reported Medications Metformin Hydrochloride (Metformin Hcl) 500 Mg Tab, 1000 MG PO BID for 30 Days, MG 10/26/18 Past Medical History Others PMH includes s/p old CVA, DM, Obesity, hypertension, hyperlipidemia and previous history of left knee OA Family History: No pertinent Hx Patient Family History: Patient reports no known family medical history. Smoker: No Hx (Negative) Alocohol: None Lives with: With family Review of Systems Constitutional: No symptom reported Ears, Nose, & Throat: No symptom reported Pulmonary/Respiratory: No symptom reported Cardiovascular: No symptom reported All Other Systems 14 point review of system was performed. Relevant findings as per above and as per HPI. Otherwise, negative. H&P Exam Vital Signs Vital Signs Date Time Temp Pulse Resp B/P (MAP) Pulse Ox O2 Delivery O2 Flow Rate FiO2 04/23/24 05:43 98.1 78 18 128/51 (76) 97 98.1 04/23/24 05:43 Room Air* 0 21 General Appeara: Well developed, Obese Head Exam: Normal inspection Eye Exam: bilateral eye PERRL Nasal Exam: Normal inspection Mouth: Normal Inspection Pulmonary/Respiratory: Normal inspection, Lungs clear Cardiovascular/Chest: Normal inspection, Regular rate Peripheral Pulses: 2+ carotid (R), 2+ carotid (L), 2+ femoral (R), 2+ femoral (L), 2+ dorsalis pedis (R), 2+ dorsalis pedis (L), 2+ Radial (R), 2+ Radial (L) Abdominal Exam: Normal bowel sounds, Soft Labs/Xrays Labs Test 04/23/24 04:59 04/22/24 15:14 04/22/24 14:16 Range/Units White Blood Count 6.8 # 4.4-10.8 10^3/uL Red Blood Count 4.00 4.0-5.20 10^6/uL Hemoglobin 12.4 12.2-16.2 g/dL Hematocrit 36.7 36.0-46.0 % Mean Corpuscular Volume 91.8 80.0-100.0 fL Mean Corpuscular Hemoglobin 31.1 28.0-32.0 pg Mean Corpuscular Hemoglobin Concent 33.9 32.0-36.0 g/dL Red Cell Distribution Width 14.9 H 11.8-14.3 % Platelet Count 306 140-450 10^3/uL Mean Platelet Volume 8.2 6.9-10.8 fL Neutrophils (%) (Auto) 66.2 37.0-80.0 % Lymphocytes (%) (Auto) 21.9 10.0-50.0 % Monocytes (%) (Auto) 9.4 0.0-12.0 % Eosinophils (%) (Auto) 1.9 0.0-7.0 % Basophils (%) (Auto) 0.6 0.0-2.0 % Neutrophils # (Auto) 4.5 1.6-8.6 10 ^3/uL Lymphocytes # (Auto) 1.5 0.4-5.4 10 ^3/uL Monocytes # (Auto) 0.6 0-1.3 10 ^3/uL Eosinophils # (Auto) 0.1 0-0.8 10 ^3/uL Basophils # (Auto) 0 0-0.2 10 ^3/uL Nucleated Red Blood Cells 0.1 % Sodium Level 138 136-145 mmol/L Potassium Level 3.6 3.5-5.1 mmol/L Chloride Level 106 98-107 mmol/L Carbon Dioxide Level 23 20-31 mmol/L Anion Gap 9 5-15 Blood Urea Nitrogen 27 H 9-23 mg/dL Creatinine 1.21 H 0.550-1.02 mg/dL Glomerular Filtration Rate Calc 48 >90 mL/min BUN/Creatinine Ratio 22.3 H 10.0-20.0 Serum Glucose 138 H 74-106 mg/dL Calcium Level 9.8 8.7-10.4 mg/dL Total Bilirubin 0.8 0.2-1.0 mg/dL Aspartate Amino Transferase (AST) < 8 L 13-40 U/L Alanine Aminotransferase (ALT) < 9 7-40 U/L Alkaline Phosphatase 76 46-116 U/L Total Protein 7.0 5.7-8.2 g/dL Albumin 4.0 3.2-4.8 g/dL Troponin I High Sensitivity 24 </=34 ng/L B-Type Natriuretic Peptide 20.53 0-100 pg/mL Assessment/Plan Plan Patient is 73 year old female who presented for left sided weakness. She is poor historian. She does have history of prior CVA. Cardiology was involved for cardiac aspects of care. No report of chest pain/LOC/palpitation. Does have baseline poor functional capacity. Morbidly obese. No JVD. [place] and wet mucosa, no goiter. Not using accessory muscles of breathing. Lungs are clear to auscultation. Cardiac; RR, no thrill, no gallop. Abdomen is soft and obese. BS+, no gross mass, no tenderness. Ext: no edema, DP: 2+ bilateral. Left sided weakness+ PMH includes s/p old CVA, DM, Obesity, hypertension, hyperlipidemia and previous history of left knee OA Creat: 1.56 - 1.21 K: 3.9 - 3.6 Trop (high sensitive): 25 - 24 BNP: 20.53 TSH: 2.02 Chest xry reported: FINDINGS: Heart size is enlarged. Question of mild congestive changes in the right lung. Left lung is clear IMPRESSION: 1. Question mild pulmonary edema CT of head reported: IMPRESSION: 1. Small nonspecific hypodense focus in the left basal ganglia, anterior to the thalamus which may represent an age indeterminate lacunar infarct. Clinical correlation and further evaluation with MRI brain with diffusion-weighted imaging is recommended. 2. Chronic infarct in the right occipital lobe. There are also likely additional chronic infarcts in the left occipital and left anterior frontal lobes. Tele reveals SR Patient is 73 year old female who presented with left sided weakness. There is question about new/acute CVA. Does have history of old CVA. ACS is not considered at this point. CVA, acute? s/p old CVA hypertension hyperlipidemia obesity OA Cardiac suggestion for management: Manage on Tele Follow up electrolytes and kidney function test and correct abnormalities. Keep potassium above 4 and magnesium above 2 Echocardiogram ASA and Statin is suggested MRI of Brain is suggested Carotid sono is suggested (if Neurology agrees) Neurology evaluation is suggested custodial monitor can be arranged as outpatient. Further evaluation and management as per above and clinical course Thank you for consultation A total of 75 minutes was spent reviewing the patient record, examining the patient, making a diagnostic and therapeutic plan, discussing this plan with medical personnel, following up on diagnostic studies and following the patient for clinical stability excluding any and all procedures. At least 50% of this time was spent in direct, [id number] contact. Thank you for allowing me to participate in this patient's care. Further recommendations will depend on patient's clinical course. Please do not hesitate to contact me if you have any questions or concerns. This medical document was created using electronic medical record system with [employer] computerized dictation system. Although this document has been carefully reviewed, there may still be some phonetic and typographical errors. These areas are purely typographical due to the imperfection of the software programs, and do not reflect any compromise in the patient's medical care. Plan discussed with: Patient, Other (nurse) JOSE ALVAREZ MD Apr 23, 2024 07:09
--- NOTE | 2024-04-23 07:51 | DVHPN2 ---
Progress Note - Dictate vital signs Vital Sign Date Time Temp Pulse Resp B/P (MAP) Pulse Ox O2 Delivery O2 Flow Rate FiO2 04/23/24 05:43 98.1 78 18 128/51 (76) 97 98.1 04/23/24 05:43 Room Air* 0 21 medications Current Medications Medications Dose Ordered Sig/Annabel Route Start Time Stop Time Status Last Admin Dose Admin Acetaminophen/ Hydrocodone Bitart 1 tab Q4HP PRN PO 04/22/24 18:30 Ondansetron HCl 4 mg Q4HP PRN IV 04/22/24 18:30 Acetaminophen 650 mg Q6HP PRN PO 04/22/24 18:30 Enoxaparin Sodium 40 mg DAILY SC 04/23/24 10:00 Nitroglycerin 0.4 mg Q5MINP PRN SL 04/22/24 18:30 Morphine Sulfate 2 mg Q30M PRN IV 04/22/24 18:30 Aspirin 81 mg DAILY PO 04/23/24 10:00 UNV Atorvastatin Calcium 40 mg DAILY PO 04/23/24 10:00 UNV laboratory and microbiology Laboratory Tests 04/23/24 04:59 Test 04/23/24 04:59 Range/Units Serum Glucose 138 H 74-106 mg/dL SAHARA NERI NP Apr 23, 2024 07:51
[2024-04-23 08:22] LABS: Cholesterol 146 mg/dL (< 200)
[2024-04-23 08:23] LABS: Triglycerides 92 mg/dL (< 150)
[2024-04-23 08:24] LABS: LDL Cholesterol 67 mg/dL (< 100)
[2024-04-23 08:25] LABS: HDL Cholesterol 54 mg/dL (40-59)
--- NOTE | 2024-04-23 08:37 | DVHINCON2 ---
Date of service: Apr 23, 2024 Referring Physician Richa Reason for Consultation Stroke History of Present Illness This is a difficult consultation Ms. Bear Boogie is a 73 years old right-handed female with a history of diabetes, arthritis, chronic stroke, the patient came to the [facility] on 04/22[facility]24 with a chief company of sided weakness. At that time, she was awake, but looks weak, oriented to person, place, she does not know the year and the month, she was very poor historian, I have long time with her without bilingual nursing staff help, I only obtained small amount of information. No family available for the history Apparently, the patient was has had left-sided weakness since 04/21/2024. Otherwise this no numbness, headache, vision changes, dizziness, chest pain or shortness breath According to chart, the patient was had chronic stroke and her CT head did not show evidence of left occipital frontal lobe strokes areas. there is a possible stroke in the left basal ganglia region [phone] no answer CBC, 04/22/2024: Unremarkable BUN/CR, 04/23/2024: 27/1.21 Liver function tests, 04/23/2024: Normal TG/HDL/LDL/HDL, 04/23/2024: 92/146/67/54 TSH, 04/23/2024: 2.02 CT head, 04/22/2024: 1. Small nonspecific hypodense focus in the left basal ganglia, anterior to the thalamus which may represent an age indeterminate lacunar infarct. Clinical correlation and further evaluation with MRI brain with diffusion-weighted imaging is recommended. 2. Chronic infarct in the right occipital lobe. There are also likely additional chronic infarcts in the left occipital and left anterior frontal lobes Past Medical History Diabetes, stroke, left knee arthritis Past Surgical History Denies all surgeries Family History: Patient reports no known family medical history. Family History Unknown Social History Smoker: Non-Smoker Alcohol: Denies ETOH Use Drugs: Denies Drug Use Allergies: Coded Allergies: NO KNOWN ALLERGIES (Unverified , 10/25/18) Home Meds Reported Medications Metformin Hydrochloride (Metformin Hcl) 500 Mg Tab, 1000 MG PO BID for 30 Days, MG 10/26/18 Current Medications Current Medications Medications (Trade) Dose Ordered Sig/Annabel Route PRN Reason Start Time Stop Time Status Last Admin Acetaminophen/ Hydrocodone Bitart ([place] 5/325MG Tab) 1 tab Q4HP PRN PO MODERATE PAIN (4-6 PAIN SCALE) 04/22/24 18:30 Ondansetron HCl (Zofran) 4 mg Q4HP PRN IV NAUSEA / VOMITING 04/22/24 18:30 Acetaminophen (Tylenol Tablet) 650 mg Q6HP PRN PO PAIN SCALE 1-3 OR TEMP>100.4 04/22/24 18:30 Enoxaparin Sodium (Lovenox) 40 mg DAILY SC 04/23/24 10:00 Nitroglycerin (Ntrostat Sublingual) 0.4 mg Q5MINP PRN SL FOR CHEST PAIN 04/22/24 18:30 Morphine Sulfate 2 mg Q30M PRN IV FOR CHEST PAIN 04/22/24 18:30 Aspirin 81 mg DAILY PO 04/23/24 10:00 UNV Atorvastatin Calcium (Lipitor) 40 mg DAILY PO 04/23/24 10:00 UNV Review of Systems Unobtainable Vital Signs Vital Signs Date Time Temp Pulse Resp B/P (MAP) Pulse Ox O2 Delivery O2 Flow Rate FiO2 04/23/24 08:25 97.9 79 19 108/63 (78) 98 97.9 04/23/24 05:43 Room Air* 0 21 Physical Exam GENERAL EXAM: General: the patient is well developed and nourished. No acute distress. HEENT: Normocephalic, neck is supple, no carotid bruits. No mass. RESPIRATORY: Normal respiratory effort with symmetrical lung expansion. Lungs clear to auscultation. CARDIOVASCULAR: Regular rate and rhythm with no murmurs. S1, S2. ABDOMEN: Soft, nontender, normal bowel sound NEUROLOGICAL: MENTAL STATUS: Awake and alert. Oriented to person, place, poor historian SPEECH, LANGUAGE, HIGHER CORTICAL FUNCTION: no aphasia or dysathria. CRANIAL NERVES: #2: Intact visual liang to confrontation. The optic discs were sharp. #3,4,6: Pupils are equal, round and reactive. EOMs full and conjugate. No nystagmus. #5: Facial sensation intact in all three divisions bilaterally. Mandibular strength intact. #7: Facial muscles symmetrical and strength intact. #8: Hearing grossly normal to voice. #9,10: Uvula and soft palate rise in the midline. Swallow and voice are normal. #11: Trapezius and sternomastoid strength intact bilaterally. #12: Tongue midline. No fasciculations or atrophy. SENSATION: Sensation to touch and pinprick is normal. MOTOR: Normal tone in the upper and lower extremity. Normal muscle bulk. No fasciculations. No abnormal movements or posturing. Muscle strength of the major groups in the right extremities is 5/5. Muscle strength of the major groups in the left extremities is: Upper: 1/5, lower: 2/5. REFLEXES: Deep tendon reflexes normal and symmetrical. No pathological reflexes. CEREBELLAR/COORDINATION: Finger to nose is normal in the right hand GAIT/STATION: deferred Labs/Diagnostic Data Labs Test 04/23/24 07:00 04/23/24 04:59 04/22/24 15:14 04/22/24 14:16 Range/Units Thyroid Stimulating Hormone (TSH) 2.02 0.55-4.78 uIU/mL White Blood Count 6.8 # 4.4-10.8 10^3/uL Red Blood Count 4.00 4.0-5.20 10^6/uL Hemoglobin 12.4 12.2-16.2 g/dL Hematocrit 36.7 36.0-46.0 % Mean Corpuscular Volume 91.8 80.0-100.0 fL Mean Corpuscular Hemoglobin 31.1 28.0-32.0 pg Mean Corpuscular Hemoglobin Concent 33.9 32.0-36.0 g/dL Red Cell Distribution Width 14.9 H 11.8-14.3 % Platelet Count 306 140-450 10^3/uL Mean Platelet Volume 8.2 6.9-10.8 fL Neutrophils (%) (Auto) 66.2 37.0-80.0 % Lymphocytes (%) (Auto) 21.9 10.0-50.0 % Monocytes (%) (Auto) 9.4 0.0-12.0 % Eosinophils (%) (Auto) 1.9 0.0-7.0 % Basophils (%) (Auto) 0.6 0.0-2.0 % Neutrophils # (Auto) 4.5 1.6-8.6 10 ^3/uL Lymphocytes # (Auto) 1.5 0.4-5.4 10 ^3/uL Monocytes # (Auto) 0.6 0-1.3 10 ^3/uL Eosinophils # (Auto) 0.1 0-0.8 10 ^3/uL Basophils # (Auto) 0 0-0.2 10 ^3/uL Nucleated Red Blood Cells 0.1 % Sodium Level 138 136-145 mmol/L Potassium Level 3.6 3.5-5.1 mmol/L Chloride Level 106 98-107 mmol/L Carbon Dioxide Level 23 20-31 mmol/L Anion Gap 9 5-15 Blood Urea Nitrogen 27 H 9-23 mg/dL Creatinine 1.21 H 0.550-1.02 mg/dL Glomerular Filtration Rate Calc 48 >90 mL/min BUN/Creatinine Ratio 22.3 H 10.0-20.0 Serum Glucose 138 H 74-106 mg/dL Calcium Level 9.8 8.7-10.4 mg/dL Total Bilirubin 0.8 0.2-1.0 mg/dL Aspartate Amino Transferase (AST) < 8 L 13-40 U/L Alanine Aminotransferase (ALT) < 9 7-40 U/L Alkaline Phosphatase 76 46-116 U/L Total Protein 7.0 5.7-8.2 g/dL Albumin 4.0 3.2-4.8 g/dL Triglycerides Level 92 < 150 mg/dL Cholesterol Level 146 < 200 mg/dL LDL Cholesterol 67 < 100 mg/dL HDL Cholesterol 54 40-59 mg/dL Troponin I High Sensitivity 24 </=34 ng/L B-Type Natriuretic Peptide 20.53 0-100 pg/mL Assessment Acute left-sided weakness, to rule out acute stroke Altered mental status Stroke Metabolic encephalopathy Rule out seizure Plan/Recommendation Monitoring Supportive treatment Telemetry Lipid profile Echocardiogram Carotid Doppler MRI brain scan Aspirin 81 mg daily Lipitor 40 mg daily DVT prophylaxis GI prophylaxis More recommendation per clinical course Progress: Poor This medical document was created using an electronic medical record system with [employer] dictation system. Although this document has been carefully reviewed, there may still be some phonetic and typographical errors. These areas are purely typographical due to imperfections of the software programs, and do not reflect any compromise in the patient's medical care. Plan discussed with: Patient, Other EUFEMIA CARO MD Apr 23, 2024 08:36
[2024-04-23] MEDS ORDERED: LORazepam 2MG/ML-1ML VIAL IV PRN (10:15)
--- NOTE | 2024-04-23 10:26 | DVH ---
PROCEDURE: MRI MRA ANGIO HEAD BRAIN INDICATION: cva work up Exam Date: 04/23/2024 09:33 AM COMPARISON: None TECHNIQUE: MRA head without intravenous contrast. 3D image postprocessing was performed on a dedicated workstation and images were used for interpretat ion and reporting. FINDINGS: MRA head: There are high-grade stenoses in the bilateral cavernous carotid arteries. There is preserved enhan cement within the anterior and middle cerebral arteries. There is no flow in the right V4 segment. Th ere is a moderate to high-grade stenosis in the left V4 segment. There is preserved enhancement withi n the basilar artery, cerebellar arteries and posterior cerebral arteries. There is no intracranial aneurysm identified. No abnormal venous signal is seen. IMPRESSION: 1. Atherosclerotic disease. 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 Occlud ed right V4 segment. Moderate to high-grade stenosis in the left V4 segment. Recommend further evalu ation with CTA of the head or cerebral angiogram. HS:Y
--- NOTE | 2024-04-23 10:30 | DVH ---
PROCEDURE: MRI BRAIN HEAD WO CONTRAST INDICATION: R/O CVA EXAM DATE: 04/23/2024 09:44 AM COMPARISON: CT HEAD WITHOUT CONTRAST on DOS: 04/22/24 TECHNIQUE: MRI of the brain without intravenous contrast. FINDINGS: Diffusion weighted images of the brain demonstrate no evidence of acute infarction. There is no evidence of acute intracranial hemorrhage, extra-axial collection, mass effect, midline s hift, herniation or hydrocephalus. The ventricles, sulci and cisterns appear age appropriate. There are multiple old infarcts including in the bilateral frontal lobes and bilateral occipital lobe s. Mild changes of chronic microvascular ischemic disease. There are no signal abnormalities on the susceptibility weighted sequences. The major vascular flow voids are present. Sinus mucosal thickening in the left maxillary sinus. The surrounding soft tissues and osseous struc tures are unremarkable. IMPRESSION: 1. Multiple old infarcts. No acute ischemia. HS:Y
--- NOTE | 2024-04-23 10:44 | DVH ---
PROCEDURE: MRI MRA ANGIO OF NECK INDICATION: cva work up COMPARISON: MRI MRA ANGIO HEAD BRAIN on DOS: 04/23/24 TECHNIQUE: MRA neck without intravenous contrast. 3D image postprocessing was performed on a dedicated workstation and images were used for interpretat ion and reporting. FINDINGS: There is no evidence of hemodynamically significant stenosis involving the bilateral common and inter nal carotid arteries. The right vertebral artery is hypoplastic with attenuated flow signal. The left vertebral artery is dominant. IMPRESSION: 1. There is no hemodynamically significant stenosis the cervical segments of the carotid and vertebra l arteries. 2. 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 HS:Y
[2024-04-23] MEDS ORDERED: ASPI-325 PO (11:10)
[2024-04-23] MEDS ORDERED: ATOR20TA50 PO (11:10)
[2024-04-23] MEDS: ENOXAPARIN SOD 40 MG/0.4 ML SYRINGE SC SCH (11:14)
[2024-04-23] MEDS: ENOXAPARIN SOD 40 MG/0.4 ML SYRINGE SC ONE (11:14)
[2024-04-23] MEDS: ASPirin 81 mg TAB PO SCH (11:14)
[2024-04-23] MEDS: ATORVASTATIN 20 MG TAB PO SCH (11:15)
--- NOTE | 2024-04-23 11:15 | DVHDS2 ---
Discharge Summary Date of Admission Apr 22, 2024 at 18:25 Date of Discharge: Apr 23, 2024 Admitting Diagnosis Left sided weakness and chronic CVA. Wounds: None Labs/Diagnostic Data: Laboratory Results Test 04/23/24 07:00 04/23/24 04:59 04/22/24 15:14 04/22/24 14:16 Thyroid Stimulating Hormone (TSH) 2.02 uIU/mL (0.55-4.78) White Blood Count 6.8 10^3/uL (4.4-10.8) Red Blood Count 4.00 10^6/uL (4.0-5.20) Hemoglobin 12.4 g/dL (12.2-16.2) Hematocrit 36.7 % (36.0-46.0) Mean Corpuscular Volume 91.8 fL (80.0-100.0) Mean Corpuscular Hemoglobin 31.1 pg (28.0-32.0) Mean Corpuscular Hemoglobin Concent 33.9 g/dL (32.0-36.0) Red Cell Distribution Width 14.9 % (11.8-14.3) Platelet Count 306 10^3/uL (140-450) Mean Platelet Volume 8.2 fL (6.9-10.8) Neutrophils (%) (Auto) 66.2 % (37.0-80.0) Lymphocytes (%) (Auto) 21.9 % (10.0-50.0) Monocytes (%) (Auto) 9.4 % (0.0-12.0) Eosinophils (%) (Auto) 1.9 % (0.0-7.0) Basophils (%) (Auto) 0.6 % (0.0-2.0) Neutrophils # (Auto) 4.5 10 ^3/uL (1.6-8.6) Lymphocytes # (Auto) 1.5 10 ^3/uL (0.4-5.4) Monocytes # (Auto) 0.6 10 ^3/uL (0-1.3) Eosinophils # (Auto) 0.1 10 ^3/uL (0-0.8) Basophils # (Auto) 0 10 ^3/uL (0-0.2) Nucleated Red Blood Cells 0.1 % Sodium Level 138 mmol/L (136-145) Potassium Level 3.6 mmol/L (3.5-5.1) Chloride Level 106 mmol/L (98-107) Carbon Dioxide Level 23 mmol/L (20-31) Anion Gap 9 (5-15) Blood Urea Nitrogen 27 mg/dL (9-23) Creatinine 1.21 mg/dL (0.550-1.02) Glomerular Filtration Rate Calc 48 mL/min (>90) BUN/Creatinine Ratio 22.3 (10.0-20.0) Serum Glucose 138 mg/dL (74-106) Hemoglobin A1c 6.5 % A1C (<5.7) Calcium Level 9.8 mg/dL (8.7-10.4) Total Bilirubin 0.8 mg/dL (0.2-1.0) Aspartate Amino Transferase (AST) < 8 U/L (13-40) Alanine Aminotransferase (ALT) < 9 U/L (7-40) Alkaline Phosphatase 76 U/L (46-116) Total Protein 7.0 g/dL (5.7-8.2) Albumin 4.0 g/dL (3.2-4.8) Triglycerides Level 92 mg/dL (< 150) Cholesterol Level 146 mg/dL (< 200) LDL Cholesterol 67 mg/dL (< 100) HDL Cholesterol 54 mg/dL (40-59) Troponin I High Sensitivity 24 ng/L (</=34) B-Type Natriuretic Peptide 20.53 pg/mL (0-100) Other Laboratory Tests 04/23/24 04:59 Brief Hx & Hospital Course: Patient was admitted for chronic left-sided weakness. Patient has a history of prior CVA with left sided weakness. However, her condition was more pronounced. Patient reports her symptoms started of last week. CTA of the brain was negative. MRI of the brain was significant for old infarct. 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 I did discuss these findings with Dr Babcock. No surgical interventions were recommended. Per neurologist, if occlusion was at V2 segment, patient may follow up for possible intervention, however, since occlusion and stenosis is at V4 segment, it is considered non-operable. Patient was seen by cardiology and neurology and echocardiogram was done. Patient was seen by physical therapy. Patient was excepted at [facility] for rehab where she will continue physical therapy under the care of Dr. Katelynn. Consults/Reason for consult Neurology was consulted for CVA workup. Cardiology was consulted for cardiovascular work up and echocardiogram. 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 Pace Will this Physician continue t: Yes Name of Physician to Continue: Dr. Pace Reason For Transfer: Rehab Discharge Instruct/Medications Diet: Regular Activity: No Restrictions, As Tolerated Medications: Atorvastatin A 30 Discharge Statement: "Patient was advised to return to the ER or call 911 if any headaches, dizziness, shortness of breath, chest pain, abdominal pain, bleeding, fevers, or worsening of medical condition. Patient was counseled about treatment plan, medications, possible side effects, patientverbalized understanding. All questions were answered to the best of my ability. This discharge took greater then 30 minutes in planning, reviewing documentation, counseling the patient, and discussing with other team members." ASSESSMENT ASSESSMENT Assessment SAHARA NERI NP Apr 23, 2024 11:15
--- NOTE | 2024-04-23 11:24 | DVH ---
CAROTID ARTERIAL DOPPLER CLINICAL HISTORY: Stroke TECHNIQUE: Doppler study of bilateral carotid/vertebral arteries were performed. Comparison: None FINDINGS: The bilateral common carotid, external and internal carotid arteries appear patent without hemodynami arlette significant stenosis. There is no significant flow limiting plaque formation identified.The sp ectral wave forms and peak systolic velocities are within normal limits. Antegrade flow is present within the vertebral arteries with appropriate velocities and waveforms. Right ICA/CCA PSV ratio = 1.1. Left ICA/CCA PSV ratio = 1.5 . IMPRESSION: 1. No hemodynamically significant stenosis within the carotid arteries. HS:Y
[2024-04-23 15:16] VITALS: BP 111/85; PULSE 77; RESP 16; TEMP 98.4; O2SAT 98
[2024-04-23 18:45] VITALS: BP 118/76; PULSE 78; RESP 18; TEMP 98.6; O2SAT 98
[2024-04-24] MEDS ORDERED: ENOXAPARIN SOD 40 MG/0.4 ML SYRINGE SC SCH (10:00)
== END 2024-04-23 19:35 | DRG 46 ==
LOC: EDBD 13:12 → EDUNIT# 13:12 → ER 13:12 → TELE 18:25
PROVIDERS: ADMIT Nurse Practitioner; ATTEND Nurse Practitioner
DX: I65.22 Occlusion and stenosis of left carotid artery (principal); G93.41 Metabolic encephalopathy; I69.354 Hemiplegia and hemiparesis following cerebral infarction affecting left non-dominant side; E11.9 Type 2 diabetes mellitus without complications; I10 Essential (primary) hypertension; E78.5 Hyperlipidemia, unspecified; M17.12 Unilateral primary osteoarthritis, left knee; Z79.82 Long term (current) use of aspirin; Z79.84 Long term (current) use of oral hypoglycemic drugs; Z79.899 Other long term (current) drug therapy; Z79.4 Long term (current) use of insulin
CPT/HCPCS: 36415; 70450; 70545; 70547; 70551; 71045; 80048; 80053; 80061; 83036; 83880; 84443; 84484; 85025; 93886; 97163; G0378